=== PATIENT | female | born 1970 | race Caucasian/White ===

== ENCOUNTER 2016-06-10 11:54 | Observation (INO) | payer BC ==
[~2016-06-10] VITALS: Ht 165.1 cm; Wt 48.7 kg
[~2016-06-10 11:54] MED LIST: ACYC1CAP16 PO; ADDE20 PO; HYDR-3288 PO; LEXA20TA PO; SUCR1TAB PO; [UNRECOGNIZED DRUG - CODE] T-DERMAL
[2016-06-10] MEDS ORDERED: ePHEDrine/NS 25 MG/5 ML SYR IV ONE (12:00)
[2016-06-10] MEDS ORDERED: NEOSTIGMINE 3 MG/3 ML SYR IV ONE (12:00)
[2016-06-10] MEDS ORDERED: PROPOFOL 200 MG/20 ML AMP IV ONE (12:00)
[2016-06-10] MEDS ORDERED: ONDANSETRON HCL 4 MG/2 ML VIAL IV PUSH ONE (12:00)
[2016-06-10] MEDS ORDERED: PHENYLEPH/NS 1000 MCG/10 ML SYR IV ONE (12:00)
[2016-06-10 12:45] VITALS: BP 113/74; PULSE 70; RESP 16; TEMP 98.7; O2SAT 100
[2016-06-10] MEDS ORDERED: METOPROLOL TARTRATE 25 MG TAB PO PRN (12:45)
[2016-06-10] MEDS ORDERED: SODIUM CHLORID 0.9% 500 ML IV SCH (12:45)
[2016-06-10] MEDS: LACTATED RINGER'S 1000 ML IV SCH (12:45)
[2016-06-10] MEDS ORDERED: INSULIN HUMAN REGULAR 1,000 UNITS/10 ML VIAL SQ PRN (12:45)
--- NOTE | 2016-06-10 12:50 | PD.HP.UP ---
H&P Update Note The Pre-Admit History and Physical Examination regarding the above named patient was reviewed (including, but not limited to, vital signs, heart, lungs, co-morbid conditions), and upon re-examination it is noted that: the patient's condition has not significantly changed since the last examination. Sam Oneill MD Jun 10, 2016 12:50
[2016-06-10] MEDS ORDERED: BUPIVACAINE/EPINEPHRINE 0.5% PF 30 ML VIAL ONE (14:08)
[2016-06-10] MEDS ORDERED: LIDOCAINE 1%/EPINEPHrine 1:100,000 SOLN 30 ML VIAL ONE (14:08)
[2016-06-10] MEDS ORDERED: fentaNYL CITRATE 250 MCG/5 ML AMP ONE (14:11)
[2016-06-10] MEDS ORDERED: ACETAMINOPHEN 1000 MG/100 ML VIAL IV ONE (14:11)
[2016-06-10] MEDS ORDERED: FAMOTIDINE 20 MG/2 ML VIAL ONE (14:11)
[2016-06-10] MEDS ORDERED: DICLOFENAC SODIUM 37.5 MG/ML VIAL IV PUSH ONE (14:12)
[2016-06-10] MEDS ORDERED: MIDAZOLAM HCL 2 MG/2 ML VIAL ONE (14:17)
[2016-06-10] MEDS ORDERED: DEXAMETHASONE SOD PHOS 4 MG/ML VIAL ONE (14:18)
--- NOTE | 2016-06-10 15:54 | HHI.PR ---
Immediate Post Op Note Procedure Date: Jun 10, 2016 Pre Op Diagnosis: Hemorrhoidal prolapse Post Op Diagnosis: Same Surgeon: Sam Oneill Pulverizing And Sifting Operator(s): None Procedure: EUA and anorectoplasty Findings: prolapsing hemorrhoids in all 3 quadrants, No rectal prolapse produced Complications: None Specimen(s) removed: Hemorrhoids Estimated blood loss: min Anesthesia: General Drains: None IVF Patient to: PACU Patient Condition: Good Sam Oneill MD Jun 10, 2016 15:54
[2016-06-10] MEDS ORDERED: *morphine SULFATE 8 MG/ML PERIprocedure ONLY ONE ×2 (16:01→16:41)
[2016-06-10] MEDS ORDERED: SILVER SULFADIAZINE/LIDOCAINE CREAM 60 GM JAR TOP PRN (17:00)
[2016-06-10] MEDS ORDERED: DO NOT ADM ANY ANTICOAGULANT DRUGS XX PRN (17:00)
[2016-06-10] MEDS ORDERED: ONDANSETRON HCL 4 MG/2 ML VIAL IV PUSH PRN (17:00)
[2016-06-10] MEDS: oxyCODONE/ACETAMINOPHEN 10 MG/325 MG TAB PO PRN ×2 (18:01→21:51)
[2016-06-10 20:00] VITALS: BP 125/78; PULSE 97; RESP 20; TEMP 96.5; O2SAT 95
[2016-06-10] MEDS: MORPHINE SULFATE 4 MG/ML INJ IV PRN (20:09)
[2016-06-10 23:25] VITALS: BP 101/60; PULSE 82; RESP 20; TEMP 96.3; O2SAT 96
[2016-06-11] MEDS: MORPHINE SULFATE 4 MG/ML INJ IV PRN ×3 (00:29→06:16)
[2016-06-11] MEDS: oxyCODONE/ACETAMINOPHEN 10 MG/325 MG TAB PO PRN ×5 (02:11→22:46)
[2016-06-11 04:00] VITALS: BP 123/63; PULSE 98; RESP 20; TEMP 96; O2SAT 93
[2016-06-11 08:00] VITALS: BP 100/67; PULSE 72; RESP 14; TEMP 98.1; O2SAT 99
[2016-06-11] MEDS: HYDROmorphone HCL PF 1 MG/ML VIAL IV PUSH PRN ×4 (08:13→20:49)
[2016-06-11 12:00] VITALS: BP 104/72; PULSE 78; RESP 14; TEMP 97.8; O2SAT 98
[2016-06-11] MEDS: LACTATED RINGER'S 1000 ML IV SCH ×2 (12:26→14:06)
[2016-06-11 16:00] VITALS: BP 123/86; PULSE 80; RESP 16; TEMP 98.4; O2SAT 99
[2016-06-11] MEDS ORDERED: TEMAZEPAM 15 MG CAP PO PRN (18:30)
[2016-06-11] MEDS ORDERED: KETOROLAC TROMETHAMINE 60 MG/2 ML (IM) VIAL IM PRN (18:30)
[2016-06-11 18:39] VITALS: O2SAT 99
[2016-06-11 20:00] VITALS: BP 127/77; PULSE 106; RESP 20; TEMP 96.4; O2SAT 97
--- NOTE | 2016-06-11 23:19 | HHI.PR ---
Subjective Remarks C/R Surg POD afebrile, VSS pain under better control voiding Objective - Vital Signs Date Time Temp Pulse Resp B/P Pulse Ox O2 Delivery O2 Flow Rate FiO2 06/11/16 20:55 18 06/11/16 20:00 96.4 106 127/77 97 06/11/16 18:39 21 06/10/16 17:30 Nasal Cannula 2 Other Results PE alert Abd - soft, flat Rectal - clean, dry, packing removed A/P Assessment and Plan Imp: stable post-op OOB stool softener dc plans pain control Sam Oneill MD Jun 11, 2016 23:19
[2016-06-12 00:14] VITALS: BP 111/76; PULSE 93; RESP 20; TEMP 97.2; O2SAT 100
[2016-06-12] MEDS: HYDROmorphone HCL PF 1 MG/ML VIAL IV PUSH PRN ×3 (01:32→11:38)
[2016-06-12] MEDS: oxyCODONE/ACETAMINOPHEN 10 MG/325 MG TAB PO PRN ×3 (04:43→14:16)
[2016-06-12 08:00] VITALS: BP 101/65; PULSE 67; RESP 16; TEMP 95.8; O2SAT 97
--- NOTE | 2016-06-12 08:38 | MP ---
cc: CLARK HARGROVE M.D. DATE OF SURGERY: 06/10/2016 PREOPERATIVE DIAGNOSIS Grade III/IV prolapsing hemorrhoids. PROCEDURE Exam under anesthesia with anorectoplasty. POSTOPERATIVE DIAGNOSIS Grade III/IV prolapsing hemorrhoids. SURGEON Dr. Hargrove DETAILS OF PROCEDURE The patient was placed in the supine position. After adequate general anesthesia she was turned and placed in the prone jackknife position. Buttocks were taped apart, prepped with Betadine solution and draped in the usual sterile fashion. Initially additional anesthesia was obtained by injection of 1% Xylocaine/0.5% Marcaine with epinephrine. The anal canal was dilated and a half-hayward retractor inserted. Examination revealed rather large hemorrhoids in the right posterior position and the left lateral position. The anterior quadrant was a little bit smaller. The rectal mucosa appeared normal. Traction was placed on the rectal mucosa and no significant rectal prolapse was able to be reproduced. There may have been some internal prolapse. After adequate attempts for rectal prolapse it was felt that proceeding with the hemorrhoid surgery should be undertaken. Therefore, an elliptical incision was made over the large hemorrhoidal mass in the left lateral quadrant taking it off the internal and external sphincter. Pedicle was narrowed and additional redundant rectal mucosa was also taken with the specimen. The mucosal defect was then closed with a running chromic catgut suture. Similar dissection was then performed in the right posterior quadrant. A smaller dissection was performed in the right anterior quadrant. After all three cushions were excised, hemostasis appeared adequate. The lumen of the anal canal was more than adequate. Small Surgicel dressing was placed in the anal canal and a large Fluff dressing placed externally. The patient tolerated the procedure quite well and was brought to the recovery room in stable condition. Sponge and needle counts were correct at the end of the procedure. MD DON Nguyen/JORGE /10:49 PM /8:12 AM
[2016-06-12] MEDS ORDERED: POLYETHYLENE GLYCOL 17 GM PKG PO SCH (09:00)
[2016-06-12 10:38] VITALS: O2SAT 98
[2016-06-12 12:00] VITALS: BP 113/77; PULSE 77; RESP 12; TEMP 96.6; O2SAT 100
[2016-06-12 16:00] VITALS: BP 108/66; PULSE 73; RESP 12; TEMP 97.1; O2SAT 99
[2016-06-12] MEDS ORDERED: PERC5TAB12 PO (16:32)
== END 2016-06-12 17:07 | disposition home or self-care (01) ==
LOC: HSDC 11:54 → N07B 16:00
PROVIDERS: ADMIT Colon & Rectal Surgery; ATTEND Colon & Rectal Surgery
DX: K64.3 Fourth degree hemorrhoids (principal)
CPT/HCPCS: 00902; 46260; 88304; G0378; J0131; J1100; J1130; J1170; J1885; J2250; J2270; J2370; J2405; J2710; J3010; J7120

== ENCOUNTER 2016-06-13 13:37 | Inpatient (IN) | payer BC ==
[~2016-06-13 13:37] MED LIST changes: +PERC5TAB12 PO
[2016-06-13 14:00] VITALS: BP 110/65; PULSE 69; RESP 16; TEMP 96.1; O2SAT 98
[2016-06-13] MEDS: SILVER SULFADIAZINE/LIDOCAINE CREAM 60 GM JAR RECTAL SCH ×2 (14:00→20:02)
[2016-06-13] MEDS: HYDROmorphone HCL PF 1 MG/ML VIAL IV PUSH PRN ×3 (14:38→21:07)
[2016-06-13] MEDS: SODIUM CHLOR 0.9% 1000 ML INJ 1,000 ML IV SCH ×3 (14:38→22:00)
[2016-06-13 15:42] LABS: AUTOMATED NEUTROPHIL # 2.9 TH/MM3 (1.8-7.7); BASOPHIL % 0.7 % (0.0-2.0); EOSINOPHIL # 0.6 TH/MM3 (0-0.4); EOSINOPHIL % 11.4 % (0.0-4.0); HEMATOCRIT 31.3 % (35.0-46.0); HEMO FLAGS DIFF FINAL; LYMPHOCYTE # 1.2 TH/MM3 (1.0-4.8); MEAN CELL VOLUME 91.2 FL (80.0-100.0); MEAN CORPUSCULAR HEMOGLOBIN 31.1 PG (27.0-34.0); MEAN CORPUSCULAR HGB CONC 34.1 % (32.0-36.0); MONO % 11.1 % (0.0-8.0); NEUT % 54.8 % (16.0-70.0); PLATELET COUNT 208 TH/MM3 (150-450); RED BLOOD COUNT 3.43 MIL/MM3 (4.00-5.30); RED CELL DISTRIBUTION WIDTH 13.5 % (11.6-17.2); WHITE BLOOD COUNT 5.4 TH/MM3 (4.0-11.0)
[2016-06-13 16:00] VITALS: BP 116/72; PULSE 79; RESP 17; TEMP 96.3; O2SAT 97
[2016-06-13 16:05] LABS: ALT (GPT) 17 U/L (10-53); ANION GAP 3 MEQ/L (5-15); AST (GOT) 24 U/L (15-37); BICARBONATE 32.8 MEQ/L (21.0-32.0); BLOOD UREA NITROGEN 10 MG/DL (7-18); CHLORIDE 104 MEQ/L (98-107); GLOMERULAR FILTRATION RATE 120 ML/MIN (>89); POTASSIUM 3.9 MEQ/L (3.5-5.1); SODIUM (NA) 140 MEQ/L (136-145)
[2016-06-13 16:07] LABS: ALKALINE PHOSPHATASE 71 U/L (45-117); TOTAL BILIRUBIN ADULT 0.3 MG/DL (0.2-1.0)
--- NOTE | 2016-06-13 16:08 | RADRPT ---
EXAM DATE/TIME: 06/13/2016 15:30 [facility] COMPARISON: CT ABDOMEN & PELVIS W CONTRAST, January 24, 2015, 16:49. INDICATIONS : Continued pelvic pain status post hemorrhoidectomy ORAL CONTRAST: No oral contrast ingested. RADIATION DOSE: 9.96 CTDIvol (mGy) MEDICAL HISTORY : None SURGICAL HISTORY : Hemorrhoidectomy. Hysterectomy. ENCOUNTER: Initial ACUITY: 4 - 6 days PAIN SCALE: 8/10 LOCATION: pelvis TECHNIQUE: Volumetric scanning of the abdomen and pelvis was performed. Using automated exposure control and ad justment of the mA and/or kV according to patient size, radiation dose was kept as low as reasonably achievable to obtain optimal diagnostic quality images. FINDINGS: Parnell catheter is present within the urinary bladder. No evidence of free fluid in the pelvis. Ther e is some mild induration of the fat about the rectum. No focal fluid collections seen. No dilated loops of small bowel. Moderate amount of stool in the right and transverse colon. The fat in the is chial rectal fossa is intact. The kidneys are symmetric in size and no evidence of hydronephrosis. The liver, spleen, and pancreas are unremarkable for noncontrast technique. No dilation of the intrahepatic biliary system. No vladimir cified gallstones. The extrahepatic biliary system is dilated to 12 mm and is dilated down to the an kle. Pancreatic duct is not dilated. Wide windows for bony detail demonstrate the osseous structures to be intact. The visualized lower l ungs are clear. CONCLUSION: 1. There is some induration in the fat about the rectum, but no focal fluid collections and no free f luid in the pelvis. 2. The common bile duct is measured dilated 12 mm; no calcified stones seen. No dilation of the in trahepatic biliary system. The configuration and size of the common bile duct is very similar to apple or CT scan in January 2015. Ck Harmon MD on June 13, 2016 at 15:58 Board Certified Radiologist. This report was verified electronically.
[2016-06-13 20:00] VITALS: BP 105/65; PULSE 78; RESP 17; TEMP 98.2; O2SAT 94
[2016-06-13] MEDS ORDERED: LORazepam 2 MG/ML VIAL IVS PRN (23:00)
[2016-06-13] MEDS ORDERED: KETOROLAC TROMETHAMINE 60 MG/2 ML (IM) VIAL IM PRN (23:15)
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
[2016-06-14] VITALS: BP 126/71; PULSE 80; RESP 17; TEMP 97.7; O2SAT 97
[2016-06-14] MEDS: SODIUM CHLOR 0.9% 1000 ML INJ 1,000 ML IV SCH ×2 (03:47→11:03)
[2016-06-14 05:57] LABS: BICARBONATE 28.6 MEQ/L (21.0-32.0); POTASSIUM 3.7 MEQ/L (3.5-5.1)
[2016-06-14] MEDS: CIPROFLOXACIN 500 MG TAB PO SCH ×2 (08:02→09:00)
[2016-06-14] MEDS: HYDROmorphone HCL PF 1 MG/ML VIAL IV PUSH PRN ×2 (08:02→11:03)
[2016-06-14] MEDS: SILVER SULFADIAZINE/LIDOCAINE CREAM 60 GM JAR RECTAL SCH (08:03)
[2016-06-14 08:37] VITALS: BP 101/58; PULSE 72; RESP 18; TEMP 98; O2SAT 98
[2016-06-14] MEDS ORDERED: POLYETHYLENE GLYCOL 17 GM PKG PO SCH (09:00)
[2016-06-14 10:35] LABS: BLOOD, URINE MOD (NEG); COMMENT (UR) CULT NOT INDICATED; CULTURE IF INDICATED CULT NOT INDICATED; GLUCOSE,URINE NEG (NEG); KETONE, URINE NEG (NEG); MUCUS URINE MANY /lpf (OCC); NITRITE,URINE NEG (NEG); SQUAMOUS EPITHELIAL CELL URINE <1 /hpf (0-5); URINE COLOR YELLOW (YELLW/STRAW)
[2016-06-14] MEDS ORDERED: oxyCODONE/ACETAMINOPHEN 10 MG/325 MG TAB PO PRN ×2 (11:30)
[2016-06-14 12:47] VITALS: BP 115/63; PULSE 78; RESP 18; TEMP 99.3; O2SAT 97
[2016-06-14 17:23] VITALS: PULSE 82; RESP 18; TEMP 98.2; O2SAT 97
[2016-06-14] MEDS ORDERED: OXYC1TAB36 PO (18:18)
[2016-06-14] MEDS ORDERED: Silv Sulfadiazine-Lidocaine Cr RECTAL (18:18)
--- NOTE | 2016-06-14 18:41 | HHI.PR ---
Subjective Remarks C/R Surg afebrile, VSS UO fair/good - pt voiding on her own rhea PO Objective - Vital Signs Date Time Temp Pulse Resp B/P Pulse Ox O2 Delivery O2 Flow Rate FiO2 06/14/16 17:23 98.2 82 18 97 06/14/16 12:47 115/63 Result Diagram: 06/13/16 1517 06/14/16 0454 Objective Remarks PE alert Abd - soft, min tender, no palp bladder Rectal - wound clean, dry, slight BRB, +flatus A/P Assessment and Plan Imp: nunez remove at pt's request - monitor urine output IVF dc'd lax/softener sitz bath, Ritter's cream pain control - decr narcotics dc plans Sam Oneill MD Jun 14, 2016 18:41
== END 2016-06-14 18:55 | disposition home or self-care (01) | DRG 941 ==
LOC: N07A 13:49
PROVIDERS: ADMIT Colon & Rectal Surgery; ATTEND Colon & Rectal Surgery
PROC: 0DTP0ZZ Resection of Rectum, Open Approach (ICD-10-PCS; principal; 2016-06-10)
DX: G89.18 Other acute postprocedural pain (principal); K64.3 Fourth degree hemorrhoids; Z98.890 Other specified postprocedural states
CPT/HCPCS: 74176; 80048; 80053; 81001; 85025; 88304; G0378; J0131; J1100; J1130; J1170; J1885; J2060; J2250; J2270; J2370; J2405; J2710; J3010; J7030; J7120

== ENCOUNTER 2017-09-29 11:12 | Emergency (ER) | payer BC, OTHER ==
[~2017-09-29] VITALS: Ht 165.1 cm; Wt 60.0 kg
[~2017-09-29 11:12] MED LIST changes: -HYDR-3288 PO; +OXYC1TAB36 PO; -PERC5TAB12 PO; +Silv Sulfadiazine-Lidocaine Cr RECTAL
[2017-09-29 11:18] VITALS: BP 128/91; PULSE 96; RESP 16; TEMP 98; O2SAT 99
[2017-09-29] MEDS ORDERED: ONDANSETRON ODT 4 MG TAB PO ONE (12:45)
[2017-09-29] MEDS ORDERED: MORPHINE SULFATE 4 MG/ML INJ IM ONE (12:45)
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
[2017-09-29] MEDS ORDERED: KETOROLAC TROMETHAMINE 60 MG/2 ML (IM) VIAL IM ONE (13:45)
[2017-09-29] MEDS ORDERED: CEPH-460 PO (13:56)
[2017-09-29] MEDS ORDERED: DICL75TA PO (13:56)
[2017-09-29] MEDS ORDERED: MUPI2OIN TOPICAL (13:56)
[2017-09-29] MEDS ORDERED: HYDR-3516 PO (13:56)
== END 2017-09-29 14:30 | disposition home or self-care (01) ==
LOC: NEPK 11:12
DX: S40.022A Contusion of left upper arm, initial encounter (principal); S80.02XA Contusion of left knee, initial encounter; S09.90XA Unspecified injury of head, initial encounter; F90.9 Attention-deficit hyperactivity disorder, unspecified type; F41.9 Anxiety disorder, unspecified; V19.9XXA Pedal cyclist (driver) (passenger) injured in unspecified traffic accident, initial encounter; Y93.55 Activity, bike riding
CPT/HCPCS: 70450; 73090; 73564; 96372; 99283; E0113; J1885; J2270